=== PATIENT | female | born 1980 ===

== ENCOUNTER 2019-06-16 08:33 | Emergency (ER) | payer OTHER ==
[2019-06-16 08:50] VITALS: BP 119/76
--- NOTE | 2019-06-16 10:20 | UC ---
Skin Complaint HPI - HPI Summary HPI Summary: CHIEF COMPLAINT and HPI: This is a healthy, Bengali female complaining of one week spreading rash that began on her left lower extremity with 2 lesions and now has spread to papules on her anterior thigh, both lower legs dorsum of the forearms and she feels as if it's also present on her face. She denies any constitutional symptoms including fever, but does say that the rash itches. She denies any significant past medical history or admissions or exposures to external irritants. She denies any history of Kawasaki disease. she has no mouth or tongue complaints. Description of Pain: none, Location: itches both legs and arms. None on back or thorax. VITAL SIGNS & SaO2 REVIEWED. Within normal limits unless noted here. NURSES NOTE REVIEWED. "entire body rash started last week. Today rash started on face. Itchy. " - History of Current Complaint Chief Complaint: UCRash Time Seen by Provider: 06/16/19 09:59 Stated Complaint: RASH Hx Last Menstrual Period: 05/29/19 Pain Intensity: 0 - Allergy/Home Medications Allergies/Adverse Reactions: Allergies Allergy/AdvReac Type Severity Reaction Status Date / Time No Known Allergies Allergy Verified 06/16/19 08:50 Home Medications: Home Medications NK [No Home Medications Reported] 06/16/19 [History Confirmed 06/16/19] PMH/Surg Hx/FS Hx/Imm Hx - Additional Past Medical History Additional PMH: PAST MEDICAL HISTORY- CHRONIC and RECURRENT HEALTH PROBLEM LIST REVIEWED. Information relevant to present complaint: healthy VISIT HISTORY REVIEWED: MEDICATIONS & ALLERGIES REVIEWED. HYPERTENSION STATUS:, no medications.no hypertensive history. FAMILY HISTORY: SOCIAL HISTORY: non-smoker, lives with family, and/or's as a [id number] mom. . She came to the [facility] less than one year ago. - Surgical History Surgical History: None - Social History Alcohol Use: None Substance Use Type: None Smoking Status (MU): Never Smoked Tobacco Review of Systems All Other Systems Reviewed And Are Negative: Yes Constitutional: Positive: Negative Skin: Positive: Rash - anterior legs and forearms. He feels as if there is something on her face. Eyes: Positive: Negative ENT: Positive: Negative Respiratory: Positive: Negative Cardiovascular: Positive: Negative Gastrointestinal: Positive: Negative Genitourinary: Positive: Negative Motor: Positive: Negative Neurovascular: Positive: Negative Is Patient Immunocompromised?: No Physical Exam - Summary Physical Exam Summary: Appearance: The patient is well-appearing, is in no pain or distress, and is well-nourished. Eyes: Conjunctiva are clear. Pupils are equal and reactive to light and accommodation. Extra ocular muscle movement is intact. ENT: The hearing is grossly normal, the pharynx is normal, and the TMs are normal. There is no muffled or hoarse voice. No stridor. Neck: The neck is supple and there is no lymphadenopathy. Respiratory: The chest is non-tender to palpation and without crepitus. The lungs are clear, there are normal breath sounds, and there is no respiratory distress. No wheezes, rales or rhonchi. Cardiovascular: Heart sounds reveal a regular rate and rhythm. There are no clicks, rubs or murmurs. There are no carotid bruits or thrills. Circulation is grossly intact. Abdomen: The abdomen is soft and nontender. There is no organomegaly. Bowel sounds are present and within normal limits. No point tenderness at McBurneys point. No CVA tenderness. Musculoskeletal: Strength is intact. The patient moves all extremities. Neurological: The patient is alert. Motor and sensory are examination grossly intact. Speech is normal. Psychological: The patient displays age appropriate behavior, and is conversant. GCS=15. Skin: there is a scattered non-confluent isolated papules on the forearm and the anterior aspects of the thighs and the lower legs. There is no rash noted on the thorax anterior or posterior. There are no excoriations. The oldest lesions are on the left lower extremity and they are flat, light brown and non- tender and not pruritic. The newest lesions are more papular and were noted on the dorsum of the left hand. There is no evidence of cellulitis or lymphangitis. Triage Information Reviewed: Yes Vital Signs: Initial Vital Signs Temp 98.8 F 06/16/19 08:44 Pulse 69 06/16/19 08:44 Resp 12 06/16/19 08:44 BP 119/76 06/16/19 08:44 Pulse Ox 100 06/16/19 08:44 Course/Dx - Course Course Of Treatment: . This is a 39-year-old female with a evolving rash over the last week. The rash shows papules and the oldest lesions are faded and no longer papular. The patient denies recent cold therapy, consistent with a viral exanthem. She says that the rash itches, which would be possible, but less consistent with molluscum contagiosum. she denies any contact with external allergens such as poison charla. The rash does not look like a folliculitis. The patient's constitutional examination is within normal limits and she is healthy. her tongue examination is normal as is her heart examination. No lymph node swelling. There are no murmurs. At the moment, I'm not certain what the diagnosis of this rash is and I will refer her to a professional fighter. I will treat her itching with a nonsedating antihistamine and calamine lotion. She will use cool soaks. She knows to follow up if the rash worsens or if she has new symptoms. - Differential Diagnoses - Skin Complaint Differential Diagnoses: Cellulitis, Contact Dermatitis, Medication; Adverse Reaction, Viral Exanthem, Other - molluscum contagiosum - Diagnoses Provider Diagnosis: Rash in adult Discharge ED - Sign-Out/Discharge Documenting (check all that apply): Patient Departure All imaging exams completed and their final reports reviewed: No Studies - Discharge Plan Condition: Stable Disposition: HOME Patient Education Materials: Acute Rash (ED) Referrals: No Primary Care Phys,NOPCP [Primary Care Provider] - Ethan Nicholson MD [Medical Doctor] - Additional Instructions: WE DISCUSSED: PLEASE SEEK CARE AT THE EMERGENCY DEPARTMENT IF SYMPTOMS WORSEN OR IF NEW SYMPTOMS DEVELOP. FOLLOW UP WITH YOUR PRIMARY CARE PHYSICIAN IF CONDITION CONTINUES BEYOND 3 DAYS WITHOUT IMPROVEMENT. YOUR DIAGNOSIS IS: rash, possible viral rash. YOUR PRESCRIPTION RECOMMENDATION IS: none Use Claritin for itching. If the itching keeps you up at night, try Benadryl. Use calomine lotion over the itching areas to help lesson itching. Try cool Aveeno baths to decrease the itching. Follow up with DERMATOLOGY next week. - Billing Disposition and Condition Condition: STABLE Disposition: Home
== END 2019-06-16 10:45 | disposition home or self-care (01) ==
LOC: UCEAST 08:33
DX: R21 Rash and other nonspecific skin eruption (principal)
CPT/HCPCS: 99201; G0463